=== PATIENT | female | born 1955 | race Caucasian/White ===

== ENCOUNTER 2017-08-13 10:54 | Emergency (ER) | payer MEDICARE, BC ==
[2017-08-13] MEDS ORDERED: ACETAMINOPHEN 325 MG PO ONE (11:43)
[2017-08-13] MEDS ORDERED: ACETAMINOPHEN 325 MG ONE (11:47)
[2017-08-13 12:04] LABS: BASOPHILS % (AUTO) 1 % (0-3); EOSINOPHILS % (AUTO) 1 % (0-9); HEMATOCRIT 43 % (35-47); MEAN CORPUSCULAR VOLUME 88 fL (81-99); MONOCYTES % (AUTO) 10.3 % (0-12); NEUTROPHILS % (AUTO) 79.3 % (37-80)
[2017-08-13 12:19] LABS: ALBUMIN 3.9 gm/dl (3.4-5.0); CALCIUM 9.3 mg/dl (8.5-10.1); POTASSIUM 3.2 mMol/L (3.5-5.1)
[2017-08-13] MEDS ORDERED: SODIUM CHLORIDE 0.9% 1000ML 1,000 ML IV ONE (12:42)
[2017-08-13 14:18] LABS: APPEARANCE,URINE Slightly Cloudy; BILIRUBIN,URINE NEGATIVE (NEGATIVE); COLOR,URINE Amber; GLUCOSE, URINE (UA) NEGATIVE (NEGATIVE); KETONES,URINE 1+ (NEGATIVE); LEUKOCYTE ESTERASE ,URINE NEGATIVE (NEGATIVE); NITRATE,URINE NEGATIVE (NEGATIVE); OCCULT BLOOD,URINE NEGATIVE (NEG-TRACE); UROBILINOGEN,URINE 0.2 (0.2-1.0 EU)
[2017-08-13 14:32] LABS: RBC,URINE 0-1 (0-3AV/HPF); WBC,URINE 0-4 (0-5AV/HPF)
[2017-08-13] MEDS ORDERED: DOXYCYCLINE 100 MG TAB PO ONE (14:40)
[2017-08-13] MEDS ORDERED: DOXYCYCLINE 100 MG TAB ONE (14:43)
[2017-08-13 15:01] VITALS: RESP 18
[2017-08-13 15:03] VITALS: BP 104/65; PULSE 64; TEMP 98.7; O2SAT 96
== END 2017-08-13 14:57 | disposition home or self-care (01) | DRG 203 ==
LOC: ED 10:54
DX: J40 Bronchitis, not specified as acute or chronic (principal); E86.0 Dehydration; R94.31 Abnormal electrocardiogram [ECG] [EKG]; R68.83 Chills (without fever)
CPT/HCPCS: 36415; 71046; 80053; 81001; 84484; 85025; 87040; 87088; 87804; 93005; 96365; 99284; 99285; A9270-GY